=== PATIENT | female | born 1970 | race Caucasian/White ===

== ENCOUNTER → 2016-08-13 | Outpatient (CLI) | payer SELFPAY ==
--- NOTE | 2016-08-13 14:36 | DI ---
Indication: ITS.REASON: PAIN IN LEFT SHOULDER M25.512 PROCEDURE: SHOULDER LEFT 3 VIEWS: Encounter: Initial Comparison: None Findings: There is no acute fracture, dislocation or malalignment identified. Degenerative change in the glenohumeral joint with subchondral cyst formation and osteophytes on the humeral head, advanced for age. Acromioclavicular joint appears normal. Impression: No acute fracture. Advanced glenohumeral degenerative changes for age. .
--- NOTE | 2016-08-13 15:37 | DI ---
Indication: ITS.REASON: R10.31 RLQ ABD PAIN PROCEDURE: PA view of the chest with supine and upright AP views of the abdomen Encounter: Initial Comparison: None FINDINGS: The lungs are clear. There is no abnormal airspace opacity, pleural effusion or pneumothorax identified. The heart size, pulmonary vasculature and mediastinum are within normal limits. There is no free air on the upright view. The bowel gas pattern is nonobstructive and nonspecific. Gas is seen in nondilated small and large bowel to the level of the rectum. Moderate stool is seen throughout the colon. Cholecystectomy clips. Rounded 4 mm calcification projecting over the right L5 transverse process. IMPRESSION: 1. No acute cardiopulmonary abnormality. 2. No evidence of acute obstruction or free air. 3. 4 mm calcification projecting over the right L5 transverse process could represent a phlebolith or possibly a ureteral stone. .
== END ==
LOC: IMA 13:46
PROVIDERS: ATTEND Family Medicine
DX: M19.012 Primary osteoarthritis, left shoulder (principal); R93.8 Abnormal findings on diagnostic imaging of other specified body structures; R10.31 Right lower quadrant pain; M25.512 Pain in left shoulder

== ENCOUNTER 2017-06-05 10:52 | Inpatient (IN) ==
[2017-06-05] MEDS ORDERED: AZITHROMYCIN IV 500 MG in NS 250ml 250 ML IV ONE (11:10)
[2017-06-05] MEDS ORDERED: METHYLPREDNISOLONE SOD SUCC 125mg/2ml INJECTION IVP ONE (11:10)
--- NOTE | 2017-06-05 11:12 | Emergency Department Report ---
Asthma HPI - General Stated Complaint: soa,weak,fever Time Seen by Provider: 06/05/17 11:04 Source: patient, family, RN notes reviewed, old records reviewed Mode of arrival: ambulatory Limitations: no limitations - History of Present Illness HPI Narrative: 46yo woman presents to the ER for evaluation of SOA. Pt developed dyspnea at rest 8 days ago. Six days ago, she presented to the ER in [place] for evaluation (she wanted to come to [place], because her PCM is here, but could not travel on the icy roads). Pt was initially told that she had a virus and was given zofran. Four days ago, she was called and told that she actually had pneumonia; no atbx were rx'ed. Pt has not followed up with her PCM. Has not sought other treatment. Pt has not been taking anything for her sx. Pt does smoke 1+1/2ppd, but has not smoked for the last 8 days 2/2 dyspnea. Pt is here today, because her UOP has dropped and the urine she does produce is dark yellow and beasley. Pt thinks her 'kidneys are shutting down'. complaint: shortness of breath Onset (ago): day(s) (8+) Severity: severe Associated symptoms: dry cough - Related Data Current Asthma Therapy: none Home Medications Medication Instructions Recorded Confirmed Acetaminophen [Tylenol] 500 mg PO Q4HR PRN 06/05/17 06/05/17 Naproxen Sodium [Aleve] 220 mg PO BIDWM 06/05/17 06/05/17 Ondansetron [Zofran Odt] 4 mg PO Q6HR PRN 06/05/17 06/05/17 Allergies Allergy/AdvReac Type Severity Reaction Status Date / Time No Known Allergies Allergy Verified 06/05/17 11:17 Review of Systems All systems: reviewed and negative except as stated Respiratory: Reports: as per HPI, cough, dyspnea. Denies: wheezes, hemoptysis, stridor Genitourinary: Reports: as per HPI, dysuria. Denies: urgency, frequency, hematuria, discharge, abnormal menses, dyspareunia, genital lesions [facility] Patient Stated Medical History Multiple Sclerosis wanting her to have a workup for this Pneumonia Yes Depression Yes - Social History Smoking status: Current every day smoker Physical Exam - Limitations Limitations: no limitations - General General appearance: alert, in distress (Respiratory) - Normal Exams: Head:: Normocephalic without trauma Eyes:: Pupils are PERRLA w/ EOMI, No scleral icterus, irritation, or foreign bodies noted ENMT:: No facial trauma, nasal exudates, pharyngeal erythema, or exudates are noted Neck:: Full range of motion, without adenopathy Lymphatic:: No lymphadenopathy Musculoskeletal:: No tenderness, or deformity noted Integumentary:: No rashes, hives, or bruising noted Neurological:: Patient is alert, and oriented Psychiatric:: Patient exhibits, appropriate attention - Chest Chest inspection: Present: normal inspection, symmetric chest wall rise. Absent : tenderness, rash - Respiratory Respiratory exam: Present: normal lung sounds bilaterally, wheezes (Throughout) , prolonged expiratory phase, crackles (LLL). Absent: respiratory distress, stridor - Cardiovascular Cardiovascular exam: Present: normal rhythm, tachycardia, normal heart sounds. Absent: regular rate - Abdominal Exam Abdominal exam: Present: soft, normal bowel sounds. Absent: distention, tenderness, guarding, rebound, rigidity Course - Consultations Consultation #1: Hospitalist: Time: 14:01 Vital Signs Temperature 98.2 F 06/05/17 10:55 Pulse Rate 98 06/05/17 10:55 Respiratory Rate 24 06/05/17 10:55 Blood Pressure 129/83 06/05/17 10:55 Pulse Oximetry 94 06/05/17 10:55 Temperature 96.5 F L 06/05/17 15:03 Pulse Rate 81 06/05/17 15:09 Respiratory Rate 18 06/05/17 15:03 Blood Pressure 130/69 06/05/17 15:03 Pulse Oximetry 95 06/05/17 15:09 Dyspnea - MDM Narrative Medical decision making narrative: Pt with no evidence of bacterial infx today; her prior PNA was likely viral. Pt somewhat improved following respiratory therapy and IV steroids, but cont to have SaO2 in low 90s on 2L by NC. Pt sits at 94% SaO2 on 2L by NC; bounces between 92-96% on 2L by NC. Pt has no O2 requirement at home; will complete workup, anticipating admission. - Differential Diagnosis Differential diagnosis: Likely: Acute exacerbation, Pneumonia, COPD exacerbation , Pulmonary edema systolic, Pulmonary edema dystolic, Pneumothorax - Medical Records Attestation: I reviewed the patient's medical records. - Lab Data Attestation: I reviewed the patient's lab results. Result diagrams: 06/05/17 11:31 06/05/17 11:31 Lab Results 06/05/17 06/05/17 06/05/17 Range/Units 11:31 11:31 11:31 WBC 11.6 H (4.5-11.0) T/MM3 RBC 5.03 (4.00-5.20) M/MM3 Hgb 15.0 (12-16) GM/DL Hct 43.2 (36-46) % MCV 85.9 (80-100) UM3 MCH 29.8 (26-34) UUG MCHC 34.7 (31-37) GM/DL RDW Std Deviation 38.5 (36.9-50.2) FL Plt Count 229 (130-400) T/MM3 MPV 10.4 (9.4-12.4) UM3 Immature Gran % (Auto) Not performed Neut % (Auto) Not performed Lymph % (Auto) Not performed Screven % (Auto) Not performed Eos % (Auto) Not performed Baso % (Auto) Not performed Neut # (Auto) Not performed Lymph # (Auto) Not performed Scre[place] # (Auto) Not performed Eos # (Auto) Not performed Baso # (Auto) Not performed Abs Immat Gran (auto) Not performed Neutrophils % (Manual) 75.0 H (33-66) % Band Neutrophils % 1.0 (0-6) % Lymphocytes % (Manual) 17.0 L (23-45) % Monocytes % (Manual) 7.0 (0-9.0) % Neutrophils # (Manual) 8.7 H (1.8-7.7) T/MM3 Band Neutrophils # 0.1 T/MM3 Lymphocytes # (Manual) 2.0 (1-4.8) T/MM3 Monocytes # (Manual) 0.8 (0-0.8) T/MM3 RBC Morph Comment Normal VBG pH (7.31-7.41) VBG pCO2 (40-52) MMHG VBG pO2 (40-52) MMHG VBG HCO3 (22-26) MEQ/L VBG Total CO2 MEQ/L VBG O2 Saturation % VBG Base Excess (-2.0-2.0) MMOL/L O2 Delivery Method Turbidity < 20 (0-20) Sodium 144 (134-144) MEQ/L Potassium 3.4 L (3.6-5) MEQ/L Chloride 103 (98-107) MEQ/L Carbon Dioxide 27 (22-30) MEQ/L Anion Gap 14 (5-15) MEQ/L BUN 16.0 (7-17) MG/DL Creatinine 0.7 (0.7-1.2) MG/DL GFR Calculation 90 BUN/Creatinine Ratio 23 (6-26) RATIO Glucose 131 H (65-110) MG/DL Calculated Osmolality 280 (261-280) MOSM/KG Calcium 9.3 (8.4-10.2) MG/DL Icterus Index < 2 (0-7) Troponin I < 0.012 (0-0.12) ng/ml Specimen Hemolysis 21 < 15 (0-25) //18 Range/Units 13:29 WBC (4.5-11.0) T/MM3 RBC (4.00-5.20) M/MM3 Hgb (12-16) GM/DL Hct (36-46) % MCV (80-100) UM3 MCH (26-34) UUG MCHC (31-37) GM/DL RDW Std Deviation (36.9-50.2) FL Plt Count (130-400) T/MM3 MPV (9.4-12.4) UM3 Immature Gran % (Auto) Neut % (Auto) Lymph % (Auto) Screven % (Auto) Eos % (Auto) Baso % (Auto) Neut # (Auto) Lymph # (Auto) Screven # (Auto) Eos # (Auto) Baso # (Auto) Abs Immat Gran (auto) Neutrophils % (Manual) (33-66) % Band Neutrophils % (0-6) % Lymphocytes % (Manual) (23-45) % Monocytes % (Manual) (0-9.0) % Neutrophils # (Manual) (1.8-7.7) T/MM3 Band Neutrophils # T/MM3 Lymphocytes # (Manual) (1-4.8) T/MM3 Monocytes # (Manual) (0-0.8) T/MM3 RBC Morph Comment VBG pH 7.480 H (7.31-7.41) VBG pCO2 42.0 (40-52) MMHG VBG pO2 26.0 L (40-52) MMHG VBG HCO3 31.3 H (22-26) MEQ/L VBG Total CO2 32.6 MEQ/L VBG O2 Saturation 54.0 % VBG Base Excess 7.1 H (-2.0-2.0) MMOL/L O2 Delivery Method Room air Turbidity (0-20) Sodium (134-144) MEQ/L Potassium (3.6-5) MEQ/L Chloride (98-107) MEQ/L Carbon Dioxide (22-30) MEQ/L Anion Gap (5-15) MEQ/L BUN (7-17) MG/DL Creatinine (0.7-1.2) MG/DL GFR Calculation BUN/Creatinine Ratio (6-26) RATIO Glucose (65-110) MG/DL Calculated Osmolality (261-280) MOSM/KG Calcium (8.4-10.2) MG/DL Icterus Index (0-7) Troponin I (0-0.12) ng/ml Specimen Hemolysis (0-25) - Radiology Data Attestation: I reviewed the patient's radiology results. CXR: IMPRESSION: No acute cardiopulmonary disease. - EKG Data EKG #1 EKG attestation: Yes: I reviewed and interpreted this EKG. EKG shows normal: sinus rhythm, axis, intervals, QRS complexes, ST-T waves Rate [ED.COU.EKR]: normal Interpretation: normal EKG Disposition Clinical Impression: Acute Bronchitis With Chronic Obstructive Pulmonary Disease (COPD) Disposition: 02 Acute Care Hosp, Other Condition: Stable Time of Disposition: 14:20 - Seen By: physician
[2017-06-05] MEDS: ALBUTEROL/IPRATROPIUM 2.5mg-0.5mg/3ml NEB AEROSOL SCH ×5 (11:38→20:07)
[2017-06-05] MEDS: SALINE FLUSH 10ml SYRINGE IVF PRN ×2 (11:38→22:01)
[2017-06-05] MEDS ORDERED: NS FLUSH BAG 500ml IV PRN (12:02)
[2017-06-05] MEDS ORDERED: ONDANSETRON 4 MG/2 ML INJECTION IVP ONE (12:06)
--- NOTE | 2017-06-05 12:40 | XRay Report ---
INDICATION: SOA PROCEDURE: CHEST 2-VIEWS UPRIGHT (PA & LAT) Encounter: Initial COMPARISON: August 13, 2016 FINDINGS: The lungs are clear without evidence of focal abnormal airspace opacity. There is no pleural effusion or pneumothorax. The heart size, mediastinal contours and pulmonary vascularity are within normal limits. There is no significant skeletal abnormality. IMPRESSION: No acute cardiopulmonary disease. .
--- NOTE | 2017-06-05 15:26 | History & Physical Report ---
History of Present Illness Date: 06/05/17 Chief complaint: Coughing, Vomiting, COPD exacerbation HPI: She is a 46 showed female who presents to the emergency room today for acute evaluation of shortness of breath for the past 7 days. She reports that she was evaluated last week at [place] emergency room. She had laboratory and x-rays done at that time. She was told she had a virus and was sent home on Zofran. She reports that 4 days ago. She was called and told that she had pneumonia, however, no treatment was changed. Since that time she has continued to feel worse. She has a significant amount of vomiting every day and is unable to keep down fluids. She complains of body aches along with fever of 102 last evening. Today she presents to [facility] emergency room so she can be closer to her primary care provider, [facility]. Auditory studies did reveal mild leukocytosis with a white count of 11.6, 75% neutrophils, 1% band. Sodium is 144, potassium 3.4, BUN 16, creatinine 0.7. Troponin negative. He is afebrile. While in the emergency room. Pulse in the 90s , respiration rate 20, blood pressure is normal. Chest x-ray was performed, however, showed no acute cardiopulmonary disease. She did receive IV fluids as well as DuoNeb breathing treatment, a azithromycin 500 milligrams and Solu- Medrol 125 milligrams. She was also given a one-time dose of Zofran and oral potassium supplementation. She does have an underlying history of 1 pack a day smoker 20 years. Even her worsening symptoms despite outpatient treatment, accompanied with leukocytosis and vomiting. The hospitalist services were contacted and accepted patient for Inpatient admission for further evaluation and treatment. Patient is seen on admission to the medical unit. She is alert, oriented and appears to be in mild to moderate distress. Her hoarse voice is hoarse during conversation and at times she is unable to speak. She complains of generalized body aches especially in her back. She reports fever of 102 last evening. Presents of cough, vomiting. He reports having decreased urinary output as she feels that she is dehydrated. Review of Systems All systems PM: 10-point ROS was reviewed, no additional remarkable complaints except - Constitutional Constitutional: Present: anorexia, fatigue, fever(s), weakness Comments: Body aches - EENMT Mouth/Throat: Present: hoarseness - Respiratory Respiratory: Present: cough, dyspnea - Gastrointestinal Gastrointestinal: Present: nausea, vomiting - Genitourinary Genitourinary: Present: dysuria (decreased urinary output) - Musculoskeletal Musculoskeletal: Present: as per HPI, myalgias Past Medical History Depression, anxiety Currently undergoing workup for MS Chronic tobacco dependence Surgical History: Hysterectomy. Cholecystectomy. Appendectomy Family History Updates: Father at age 63 from metastatic cancer. Mother at age 63 from an GA - Social History Smoking status: Current every day smoker Packs per day: 1 Packs-years: 20 Substance use type: does not use Alcohol intake frequency: does not drink Housing: house Household members: significant other Current residence: Apartment/Private Home Social history: Patient resides in [place]. Primary care provider-Risa Colby at [facility] Medications Home Medications Medication Instructions Recorded Confirmed Type Acetaminophen [Tylenol] 500 mg PO Q4HR PRN 06/05/17 06/05/17 History Naproxen Sodium [Aleve] 220 mg PO BIDWM 06/05/17 06/05/17 History Ondansetron [Zofran Odt] 4 mg PO Q6HR PRN 06/05/17 06/05/17 History Allergies Allergy/AdvReac Type Severity Reaction Status Date / Time No Known Allergies Allergy Verified 06/05/17 11:17 Exam Vital Signs: Temperature 96.5 F L 06/05/17 15:03 Pulse Rate 81 06/05/17 15:09 Respiratory Rate 18 06/05/17 15:03 Blood Pressure 130/69 06/05/17 15:03 Pulse Oximetry 95 06/05/17 15:09 Height/Weight/BMI: Height 1.69 m Weight 103.8 kg Body Mass Index 36.3 - Constitutional Present: mild distress, well nourished, well developed - Routine HEENT Exam Eye: Present: EOMI ENT: Present: mucous membranes dry, dentition normal - Routine Neck Exam Present: supple - Routine Respiratory Exam Present: crackles (bilaterally) - Routine Cardiovascular Exam Present: RRR, S1, S2. Absent: murmur - Routine Abdominal Exam Present: soft, normoactive bowel sounds, non distended. Absent: tenderness - Routine Extremities Exam Present: no edema, pulses intact - Routine Back/Spine/Pelvis Exam Back/Spine: Present: full ROM - Routine Skin Exam Present: intact, dry, warm - Routine Neurological Exam Present: alert, oriented X3, CN II-XII intact, moving all extremities - Routine Psychiatric Exam Present: normal affect, cooperative Results - Labs CBC & Chem 7: 06/05/17 11:31 06/05/17 11:31 Assessment and Plan (1) Acute Bronchitis With Chronic Obstructive Pulmonary Disease (COPD) Current visit: Yes Status: Acute (2) Failure of outpatient treatment Current visit: Yes Status: Acute Assessment and Plan: Impression Acute Bronchitis with COPD exacerbation Failed outpatient treatment Hoarseness Leukocytosis-Present admission Hypokalemia-present on admission Anxiety, depression Chronic tobacco dependence Plan Admit as inpatinet status under the care of Dr Tobin Patient was started on Azithromycin IV while in the ER. Will continue daily for antimicrobial coverage. Blood cultures pending. Obtain Viral respiratory panel on admission Digital DuoNeb 4 times a day and Pulmicort twice a day Solu-Medrol IV every 6 hours to assist with pulmonary inflammation Even recent vomiting and potential dehydration. Continue with normal saline with 20 KCl to run at 100 ML per hour for gentle hydration Zofran available as needed for nausea Tylenol and Toradol available as needed for pain and body aches Monitor oxygen saturations, encourage use of a cappella as well as tobacco cessation SCDs to bilateral lower extremity for DVT prophylaxis. Recheck CBC and BMP tomorrow morning to follow blood counts, renal function and electrolytes Will discuss further orders and plan of care with attending, Dr Tobin At time of discharge medical care will return to patient's primary care provider , Risa Ordoñez APRN at [facility] DVT Prophylaxis: SCD's Resuscitation Status: Full Code - Time spent with patient Time with patient PN: 50 minutes - Physician Narrative Physician: Rowdy Tobin MD Narrative: Date: 06/05/17 Time: 1442 Have independently interviewed and examined pt. Chart reviewed. Case discussed with ED physician and my [employer]. Care plan developed with my supervision; agree with above. Presents to ED secondary to 1 week history of difficulty breathing/congestion. Was seen in [place] ED-Dx with viral syndrome and given Zofran to help her nausea. Using OTC respiratory medications without help. Persistent nausea despite Zofran. Oral drive very decreased-taking small amount of water in at a time (anything more causes increased nausea/vomiting). No diarrhea-stool slow, decreased flatus. Decreased urine output. More weak in general. Dizzy with positional change but no falls or trauma. Evaluated in ED. RR elevated and still elevated despite Neb treatments. Requiring O2 to maintain saturations in ED. WBC with elevation. CXR not showing infiltrate (possible due to pt significant dehydration). Due to persistent tachypnea despite nebulizer as well as significant N/V which would make outpatient treatment very difficult, will place patient in inpatient admission for further evaluation and treatment. Lungs: decrease breath sounds, course and congested. Shallow, rapid respiration. CV: Regular AB: soft nt, BS decreased Gen: looks ill, eyes sunken. Plan: Will place patient in inpatient admission for treatment of suspected pneumonia (viral vs CAP). Check resp panel-symptoms suspicious for influenza. IVF for hydration. Azithromycin initiated in ED, will continue. Recheck CXR tomorrow as potentially pneumonia could become viable-would start Rocephin in infiltrate seen. Solu-Medrol to decrease pulmonary inflammation. Neb treatment and acapella. Mucinex DM BID. Encouraged tobacco cessation - RT consult placed. SCD for DVT prevention. Monitor lab. Care to return to PCP at time of discharge from [facility] [facility]. Hospital Course Summary Disclaimer: The visit summary below is not to be considered part of the above Progress Note. Hospital Course: Impression Acute Bronchitis with COPD exacerbation Failed outpatient treatment Hoarseness Leukocytosis-Present admission Hypokalemia-present on admission Anxiety, depression Chronic tobacco dependence Plan Admit as inpatinet status under the care of Dr Tobin Patient was started on Azithromycin IV while in the ER. Will continue daily for antimicrobial coverage. Blood cultures pending. Obtain Viral respiratory panel on admission Digital DuoNeb 4 times a day and Pulmicort twice a day Solu-Medrol IV every 6 hours to assist with pulmonary inflammation Even recent vomiting and potential dehydration. Continue with normal saline with 20 KCl to run at 100 ML per hour for gentle hydration Zofran available as needed for nausea Tylenol and Toradol available as needed for pain and body aches Monitor oxygen saturations, encourage use of a cappella as well as tobacco cessation SCDs to bilateral lower extremity for DVT prophylaxis. Recheck CBC and BMP tomorrow morning to follow blood counts, renal function and electrolytes Will discuss further orders and plan of care with attending, Dr Tobin At time of discharge medical care will return to patient's primary care provider , Risa Ordoñez APRN [facility]
[2017-06-05] MEDS ORDERED: ALBUTEROL/IPRATROPIUM 2.5mg-0.5mg/3ml NEB AEROSOL PRN (15:50)
[2017-06-05] MEDS ORDERED: KETOROLAC 30 MG/ML INJECTION IVP PRN (15:50)
[2017-06-05] MEDS: METHYLPREDNISOLONE SOD SUCC 125mg/2ml INJECTION IVP SCH ×2 (16:27→22:00)
[2017-06-05] MEDS: 1/2 NS with KCL 20mEq 1,000 ML IV SCH (16:31)
[2017-06-05] MEDS: ACETAMINOPHEN 500 MG TABLET PO PRN ×2 (18:04→22:09)
[2017-06-05] MEDS: BUDESONIDE INH.SOLN 0.5mg/2ml NEB AEROSOL SCH ×2 (18:06→20:07)
[2017-06-06] MEDS: 1/2 NS with KCL 20mEq 1,000 ML IV SCH ×3 (02:31→20:13)
[2017-06-06] MEDS: METHYLPREDNISOLONE SOD SUCC 125mg/2ml INJECTION IVP SCH ×3 (03:15→16:55)
[2017-06-06] MEDS: ACETAMINOPHEN 500 MG TABLET PO PRN ×2 (04:55→08:56)
[2017-06-06] MEDS: SALINE FLUSH 10ml SYRINGE IVF PRN ×2 (05:52→13:39)
[2017-06-06] MEDS: ALBUTEROL/IPRATROPIUM 2.5mg-0.5mg/3ml NEB AEROSOL SCH ×4 (07:53→20:37)
[2017-06-06] MEDS: BUDESONIDE INH.SOLN 0.5mg/2ml NEB AEROSOL SCH ×2 (07:54→20:38)
--- NOTE | 2017-06-06 08:31 | XRay Report ---
INDICATION: Dyspnea/Hypoxia - ? Infiltrate PROCEDURE: CHEST 2-VIEWS UPRIGHT (PA & LAT) Encounter: Initial COMPARISON: June 05, 2017 Findings: The lungs are stable in appearance without new focal airspace consolidation. There is no pleural effusion or pneumothorax. The heart size, pulmonary vascularity and mediastinal contours are unchanged. IMPRESSION: Stable appearance of the chest without acute cardiopulmonary disease. .
[2017-06-06] MEDS: ONDANSETRON 4 MG/2 ML INJECTION IVP PRN (08:56)
[2017-06-06] MEDS: AZITHROMYCIN IV 500 MG in NS 250ml 250 ML IV SCH (12:56)
[2017-06-06] MEDS ORDERED: PROCHLORPERAZINE 10 MG/2 ML INJECTION IVP PRN (13:15)
[2017-06-06] MEDS ORDERED: MORPHINE SULFATE 4mg INJECTION IVP ONE (13:17)
--- NOTE | 2017-06-06 14:34 | Progress Note ---
- Date 06/06/17 Subjective: While resp status is improving, she c/o of a severe migraine. It's typical to her weekly migraines -- global pounding, light sensitivity, nausea/vomiting ( she was vomiting when I walked in), blurred vision, neck pain. She states that she's had intermittent blurred vision and right arm/leg weakness for the last year -- her weakness has even caused some falls. Her mother had MS and her PCP is worried she might have it too. Typically for her migraines she takes Tylenol 1g + Aleve 500 mg then tries to sleep it off. Several yrs ago she used to take Imitrex or a similar triptan. This morning she had Tylenol and Toradol, but they haven't provided any relief. She only slept 2.5 hours last night. She's hungry but can't eat/drink much b/c nausea. She did state however that she voided 3-4 times today, compared to only once yesterday. Objective Vital signs: Temperature 95.0 F L 06/06/17 08:24 Pulse Rate 86 06/06/17 08:24 Respiratory Rate 18 06/06/17 11:31 Blood Pressure 134/76 06/06/17 08:24 Pulse Oximetry 98 06/06/17 11:31 Height/Weight/BMI: Height 1.69 m Weight 104.5 kg Body Mass Index 36.3 - Constitutional Present: moderate distress - Routine HEENT Exam Head: Present: normocephalic Eye: Present: PERRL. Absent: conjunctival icterus, scleral injection - Routine Respiratory Exam Present: decreased breath sounds, wheezes (occasional) Comments: coarse breath sounds - Routine Cardiovascular Exam Present: RRR, S1, S2 - Routine Abdominal Exam Present: soft, normoactive bowel sounds - Routine Extremities Exam Present: no edema - Routine Musculoskeletal Exam Musculoskeletal: Present: moving extremities well - Routine Skin Exam Present: intact, dry, warm - Routine Neurological Exam Present: alert, oriented X3 no focal deficits noted. Pt was in severe pain and thorough CN exam was limited. - Routine Psychiatric Exam Present: cooperative Results - Labs CBC & Chem 7: 06/06/17 04:16 06/06/17 04:16 Assessment and Plan (1) Acute Bronchitis With Chronic Obstructive Pulmonary Disease (COPD) Current visit: Yes Status: Acute (2) Failure of outpatient treatment Current visit: Yes Status: Acute Assessment and Plan: Impression Acute Bronchitis with COPD exacerbation Migraine - intractable Nausea/vomiting, dehydration Leukocytosis-Present admission - resolved Hypokalemia-present on admission - improving Anxiety, depression Chronic tobacco dependence Obesity with BMI 36.6 Plan Intractable migraine -will give Compazine plus a one-time dose of Morphine 4 mg. Start oxygen to see if that helps with migraine. -will have Imitrex available if she starts to have another migraine. -Increase Tylenol to 1 gm. Cont with toradol. -MRI brain d/t sx worrisome for MS and positive fam hx. COPD/bronchitis -improving. Decrease Solu-Medrol to 62.5 mg TID. -viral panel neg. -Continue azithr (day #2) and breathing treatments. N/V/dehydration -cont with IVF. -advance diet to full liquid per pt request. D/w Dr. Tobin. High risk med in use today (Morphine) DVT Prophylaxis: SCD's GI Prophylaxis: Protonix Resuscitation Status: Full Code - Time spent with patient Time with patient PN: 25 minutes - Physician Narrative Physician: Rowdy Tobin MD Narrative: Date: 06/06/17 Time: 0 Have independently interviewed and examined pt. Chart reviewed. Case discussed with CM and my APNR. Care plan developed with my supervision; agree with above. Rough morning-severe headache. With mediations initiated, headache decreasing. Oral drive decreased, not feeling hungry. Still with nausea. Breathing still very short and congested. Cough at times. Urinating well. Strength decreased. CV: regular Lungs: Decrease bilaterally, coarse and tight. Cough with expiration. Shallow breathing, little air movement. AB: soft nt/nd Plan: Continue IVF for hydration due to decreased oral drive. Decrease Solu- Medrol. Migraine treatments initiated by my MULTI OPERATION MACHINE OPERATOR-helpful. Will check MRI of brain secondary to Migraine and to help exclude MS (in process of evaluation in outpatient setting, not had MRI yet). Continue with supportive care. Hospital Course Summary Disclaimer: The visit summary below is not to be considered part of the above Progress Note. Hospital Course: 06/05 Admit as inpatient status under the care of Dr Tobin Patient was started on Azithromycin IV while in the ER. Will continue daily for antimicrobial coverage. Blood cultures pending. Digital DuoNeb 4 times a day and Pulmicort twice a day; Solu-Medrol IV every 6 hours Even recent vomiting and potential dehydration. Continue with normal saline with 20 KCl to run at 100 ML per hour for gentle hydration Zofran available as needed for nausea; Tylenol and Toradol available as needed for pain and body aches Monitor oxygen saturations, encourage use of acappella as well as tobacco cessation. SCDs for DVT prophylaxis. 06/06 Intractable migraine -will give Compazine plus a one-time dose of Morphine 4 mg. Start oxygen to see if that helps with migraine. -will have Imitrex available if she starts to have another migraine. -Increase Tylenol to 1 gm. Cont with toradol. -MRI brain d/t sx worrisome for MS and positive fam hx. COPD/bronchitis -improving. Decrease Solu-Medrol to 62.5 mg TID. -viral panel neg. -Continue azithr (day #2) and breathing treatments. N/V/dehydration -cont with IVF. -advance diet to full liquid per pt request.
[2017-06-06] MEDS ORDERED: SUMATRIPTAN 25 MG TABLET PO PRN (14:35)
[2017-06-06] MEDS ORDERED: ACETAMINOPHEN 500 MG TABLET PO PRN (14:46)
[2017-06-06 15:07] VITALS: BMI 36.6
[2017-06-06] MEDS ORDERED: FALL RISK - PHARMACY CONSULT XX ONE (19:38)
[2017-06-06] MEDS ORDERED: MELATONIN 5 MG TABLET PO PRN (21:00)
[2017-06-06] MEDS: SENNA + DOCUSATE TABLET PO SCH (21:22)
[2017-06-07] MEDS: METHYLPREDNISOLONE SOD SUCC 125mg/2ml INJECTION IVP SCH ×2 (00:26→08:45)
[2017-06-07] MEDS: SALINE FLUSH 10ml SYRINGE IVF PRN ×2 (00:27→05:41)
[2017-06-07] MEDS: 1/2 NS with KCL 20mEq 1,000 ML IV SCH ×2 (04:45→14:48)
[2017-06-07] MEDS: PANTOPRAZOLE 20 MG TABLET PO SCH (05:37)
[2017-06-07] MEDS: ONDANSETRON 4 MG/2 ML INJECTION IVP PRN (05:41)
[2017-06-07] MEDS: BUDESONIDE INH.SOLN 0.5mg/2ml NEB AEROSOL SCH ×2 (07:11→19:29)
[2017-06-07] MEDS: ALBUTEROL/IPRATROPIUM 2.5mg-0.5mg/3ml NEB AEROSOL SCH ×4 (07:11→19:29)
[2017-06-07] MEDS: SENNA + DOCUSATE TABLET PO SCH ×2 (08:46→21:02)
--- NOTE | 2017-06-07 12:23 | Progress Note ---
- Date 06/07/17 Subjective: Pt is feeling much better today. Her migraine relief wasn't immediate yesterday , but significantly better after a few hours. She slept for 6 hours last night which also helps her situation. Currently, she isn't c/o any pain except for her normal "aches and pains". She feels like her breathing is getting better. She feels like her balance is "off" and her right ear is hurting. She also reports that everything tastes funny but her nausea has resolved and her stomach is growling - she's ready to eat some normal food. She's disappointed b/ c her grandfather's is today but she's trying to look on the positive side -- for ex., now she doesn't have to be outside in the cold. Objective Vital signs: Temperature 97.5 F 06/07/17 08:00 Pulse Rate 84 06/07/17 08:00 Respiratory Rate 16 06/07/17 08:00 Blood Pressure 128/67 06/07/17 08:00 Pulse Oximetry 94 06/07/17 08:00 Height/Weight/BMI: Height 1.69 m Weight 105.6 kg Body Mass Index 36.6 - Constitutional Present: no acute distress, well nourished, well developed - Routine HEENT Exam Head: Present: normocephalic Eye: Present: PERRL. Absent: conjunctival icterus, scleral injection ENT: Present: mucous membranes moist, oropharynx clear. Absent: TM's clear bilaterally (B/L effusions; right TM much duller with decreased light reflex) - Routine Respiratory Exam Present: decreased breath sounds Comments: coarse breath sounds with rare and mild exp wheeze - Routine Cardiovascular Exam Present: RRR, S1, S2 - Routine Abdominal Exam Present: soft, normoactive bowel sounds, non distended, non tender - Routine Extremities Exam Present: edema (trace b/l shins), pulses intact - Routine Musculoskeletal Exam Musculoskeletal: Present: moving extremities well - Routine Skin Exam Present: intact, dry, warm - Routine Neurological Exam Present: alert, oriented X3, CN II-XII intact, moving all extremities, normal speech - Routine Psychiatric Exam Present: normal affect, normal thought process, cooperative Results - Labs CBC & Chem 7: 06/07/17 04:03 06/07/17 04:03 Assessment and Plan (1) Acute Bronchitis With Chronic Obstructive Pulmonary Disease (COPD) Current visit: Yes Status: Acute (2) Failure of outpatient treatment Current visit: Yes Status: Acute Assessment and Plan: Impression Acute Bronchitis with COPD exacerbation B/L TM effusions with Rt AOM Migraine - intractable - resolved Nausea/vomiting, dehydration - resolved Leukocytosis-Present admission - resolved Hypokalemia-present on admission - improving Anxiety, depression Chronic tobacco dependence Obesity with BMI 36.6 Plan Intractable migraine - resolved. MRI report pending. Imitrex PRN. COPD/bronchitis - improving. Decrease Solu-Medrol to BID and start Prednisone 40 mg in am. Continue azithro, day #3. Will also add Keflex to cover for additional respiratory pathogens and right acute otitis. Start Flonase and Mucinex DM for B/L TM effusions. Increase activity level. N/V - improved. DC IVF and push oral fluids, Na still on high side. Advance diet to regular. DVT Prophylaxis: SCD's Resuscitation Status: Full Code - Physician Narrative Physician: Aggie Rose MD Narrative: Date: 06/07/17 Time: 1650 Rose: The patient was seen and examined by me this morning. She states her headache is much better. She has been ambulating in the room. Her breathing is improved. She is a bit emotional today as her grandfathers is today and she is unable to attend. She denies any chest pain or pressure. She's hungry and would like something real to eat. She denies any nausea or vomiting. No BM since admission. She denies any abdominal pain and states she is passing gas. Her labs all look better today and her vital signs are stable. In general, she is alert and oriented and in no acute distress. Her head is normocephalic atraumatic. Eyes PERRL, EOMs intact, sclera, lids and conjunctiva are within normal limits. She has moist mucous membranes. Oropharynx is clear. Her neck is supple without JVD. Carotids are 2+ and upstroke without bruits. Her lungs are diminished with coarse breath sounds at a soft expiratory wheeze. Her heart is regular without murmur, rub or gallop. Her abdomen is obese, soft, nontender and nondistended. There are positive bowel sounds. She has a trace of lower extremity edema. She has good strength and range of motion. She has good distal pedal pulses. Neurological exam shows no focal deficit. I have discussed the patient at length with Marcela the SCHOOL TRANSPORTATION SUPERVISOR. We have a developed a plan. We are going to change to oral prednisone tomorrow. Will start Flonase and Mucinex for her ears. Will stop the IV fluids and push oral intake. We will advance her diet. Her migraine has resolved should it occur we can try Imitrex as needed. We can see how she does off oxygen. I suspect she'll do fine but we should probably check ambulatory oxygenation as well. I agree with Marcela's assessment and plan. Hospital Course Summary Disclaimer: The visit summary below is not to be considered part of the above Progress Note. Hospital Course: 06/05 Admit as inpatient status under the care of Dr Tobin Patient was started on Azithromycin IV while in the ER. Will continue daily for antimicrobial coverage. Blood cultures pending. Digital DuoNeb 4 times a day and Pulmicort twice a day; Solu-Medrol IV every 6 hours Even recent vomiting and potential dehydration. Continue with normal saline with 20 KCl to run at 100 ML per hour for gentle hydration Zofran available as needed for nausea; Tylenol and Toradol available as needed for pain and body aches Monitor oxygen saturations, encourage use of acappella as well as tobacco cessation. SCDs for DVT prophylaxis. 06/06 Intractable migraine -will give Compazine plus a one-time dose of Morphine 4 mg. Start oxygen to see if that helps with migraine. -will have Imitrex available if she starts to have another migraine. -Increase Tylenol to 1 gm. Cont with toradol. -MRI brain d/t sx worrisome for MS and positive fam hx. COPD/bronchitis -improving. Decrease Solu-Medrol to 62.5 mg TID. -viral panel neg. -Continue azithr (day #2) and breathing treatments. N/V/dehydration -cont with IVF. -advance diet to full liquid per pt request. 06/07 Intractable migraine - resolved. MRI report pending. Imitrex PRN. COPD/bronchitis - improving. Decrease Solu-Medrol to BID and start Prednisone 40 mg in am. Continue azithro, day #3. Will also add Keflex to cover for additional respiratory pathogens and right acute otitis. Start Flonase and Mucinex DM for B/L TM effusions. Increase activity level. N/V - improved. DC IVF and push oral fluids, Na still on high side. Advance diet to regular.
[2017-06-07] MEDS: GUAIFENESIN/D-METHORPHAN 600mg/30mg TABLET PO SCH ×2 (13:07→21:02)
[2017-06-07] MEDS: AZITHROMYCIN IV 500 MG in NS 250ml 250 ML IV SCH (13:07)
[2017-06-07] MEDS: FLUTICASONE NASAL SPRAY 50mcg EA NOSTRIL SCH (13:07)
[2017-06-07] MEDS ORDERED: METHYLPREDNISOLONE SOD SUCC 125mg/2ml INJECTION IVP SCH (21:00)
[2017-06-08] MEDS: PANTOPRAZOLE 20 MG TABLET PO SCH (05:52)
[2017-06-08 07:36] VITALS: BP 138/66; TEMP 96.1
[2017-06-08] MEDS: ALBUTEROL/IPRATROPIUM 2.5mg-0.5mg/3ml NEB AEROSOL SCH ×2 (07:46→11:56)
[2017-06-08] MEDS: BUDESONIDE INH.SOLN 0.5mg/2ml NEB AEROSOL SCH (07:46)
[2017-06-08] MEDS ORDERED: PredniSONE 20 MG TABLET PO SCH (08:00)
[2017-06-08] MEDS: GUAIFENESIN/D-METHORPHAN 600mg/30mg TABLET PO SCH (09:16)
[2017-06-08] MEDS: FLUTICASONE NASAL SPRAY 50mcg EA NOSTRIL SCH (09:16)
[2017-06-08] MEDS: SENNA + DOCUSATE TABLET PO SCH (09:17)
[2017-06-08 10:07] VITALS: PULSE 60
--- NOTE | 2017-06-08 10:50 | Magnetic Resonance Report ---
Indication: poss MS, right side weakness, blurred vision PROCEDURE: MR head/brain wo con: Encounter: Initial Comparisons: None. Technique: Multiplanar, multisequence, MR imaging of the head without contrast was acquired. FINDINGS: The ventricles are of normal size, shape, and contour for the patient's age. There are a few T2/FLAIR hyperintense white matter lesions with a periventricular distribution. A couple of these show slightly increased signal on the diffusion-weighted sequences. Postcontrast imaging was not performed. The largest lesion in the right posterior frontal lobe on image #15 measures 9 x 6 mm in size. The brain stem, cerebellum, and cerebral hemispheres have a normal morphologic appearance as well as MR signal intensity on all pulse sequences. There are no areas of restricted diffusion on diffusion weighted imaging to suggest an acute infarct. There is no evidence of an intracranial mass lesion, intracranial hemorrhage, or hydrocephalus. The visualized portions of the orbits, calvarium, and skull base demonstrate no significant abnormality. Moderate sinus mucosal thickening in the sphenoid sinuses and maxillary. IMPRESSION: Periventricular white matter lesions suggestive of multiple sclerosis. Recommend clinical and laboratory correlation. .
--- NOTE | 2017-06-08 11:36 | Discharge Summary ---
Discharge Information Date of admission: 06/05/17 14:41 Anticipated date of discharge: 06/08/17 Attending Physician: Aggie Rose MD Primary care physician: Risa Henriquez APRN - Discharge Diagnosis (1) Acute Bronchitis With Chronic Obstructive Pulmonary Disease (COPD) Status: Acute (2) Failure of outpatient treatment Status: Acute Acute bronchitis with COPD exacerbation nausea and vomiting and dehydration intractable migraines MRI evidence suggesting multiple sclerosis - Laboratory Labs: 06/07/17 04:03 06/08/17 04:17 - Radiology Radiology: MRI brain 06/06/17 IMPRESSION: Periventricular white matter lesions suggestive of multiple sclerosis. Recommend clinical and laboratory correlation. History of Present Illness HPI: She is a 46 showed female who presents to the emergency room on 06/05/17 for acute evaluation of shortness of breath for the past 7 days. She reports that she was evaluated last week at [place] emergency room. She had laboratory and x-rays done at that time. She was told she had a virus and was sent home on Zofran. She reports that 4 days ago. She was called and told that she had pneumonia, however, no treatment was changed. Since that time she has continued to feel worse. She has a significant amount of vomiting every day and is unable to keep down fluids. She complains of body aches along with fever of 102 last evening. On the day of admssion, she presented to [facility] emergency room so she can be closer to her primary care provider, [facility]NE [facility]. Laboratory studies did reveal mild leukocytosis with a white count of 11.6, 75% neutrophils, 1% band. Sodium is 144, potassium 3.4, BUN 16, creatinine 0.7. Troponin negative. She is afebrile. While in the emergency room. Pulse in the 90s, respiration rate 20, blood pressure is normal. Chest x-ray was performed, however, showed no acute cardiopulmonary disease. She did receive IV fluids as well as DuoNeb breathing treatment, a azithromycin 500 milligrams and Solu-Medrol 125 milligrams. She was also given a one-time dose of Zofran and oral potassium supplementation. She does have an underlying history of 1 pack a day smoker 20 years. Even her worsening symptoms despite outpatient treatment, accompanied with leukocytosis and vomiting. The hospitalist services were contacted and accepted patient for Inpatient admission for further evaluation and treatment. Patient is seen on admission to the medical unit. She is alert, oriented and appears to be in mild to moderate distress. Her hoarse voice is hoarse during conversation and at times she is unable to speak. She complains of generalized body aches especially in her back. She reports fever of 102 last evening. Presents of cough, vomiting. He reports having decreased urinary output as she feels that she is dehydrated. Objective Vital signs: Temperature 96.1 F L 06/08/17 07:35 Pulse Rate 60 06/08/17 08:00 Respiratory Rate 12 06/08/17 07:46 Blood Pressure 138/66 06/08/17 07:35 Pulse Oximetry 96 06/08/17 07:46 Height/Weight/BMI: Height 1.69 m Weight 105 kg Body Mass Index 36.6 Comments: Gen: alert and oriented. NAD Skin: warm and dry HEENT: NC/AT PERRL, EOMI, Sclera, lids and conjunctiva wnl. MMM. OP clear. Neck: No JVD, Carotids 2+ without bruits Lungs: diminished, soft exp wheezes CV: regular. No murmur, rub or gallop Abd: soft. +BS. NT/ND MS: No edema. Good strength and ROM Neuro: No focal deficits Hospital Course This is a general summary of the patient's hospital course. For more details refer to the complete medical record. Hospital course: 06/05 Admit as inpatient status under the care of Dr Tobin Patient was started on Azithromycin IV while in the ER. Will continue daily for antimicrobial coverage. Blood cultures pending. Digital DuoNeb 4 times a day and Pulmicort twice a day; Solu-Medrol IV every 6 hours Even recent vomiting and potential dehydration. Continue with normal saline with 20 KCl to run at 100 ML per hour for gentle hydration Zofran available as needed for nausea; Tylenol and Toradol available as needed for pain and body aches Monitor oxygen saturations, encourage use of acappella as well as tobacco cessation. SCDs for DVT prophylaxis. 06/06 Intractable migraine -will give Compazine plus a one-time dose of Morphine 4 mg. Start oxygen to see if that helps with migraine. -will have Imitrex available if she starts to have another migraine. -Increase Tylenol to 1 gm. Cont with toradol. -MRI brain d/t sx worrisome for MS and positive fam hx. COPD/bronchitis -improving. Decrease Solu-Medrol to 62.5 mg TID. -viral panel neg. -Continue azithr (day #2) and breathing treatments. N/V/dehydration -cont with IVF. -advance diet to full liquid per pt request. 06/07 Intractable migraine - resolved. MRI report pending. Imitrex PRN. COPD/bronchitis - improving. Decrease Solu-Medrol to BID and start Prednisone 40 mg in am. Continue azithro, day #3. Will also add Keflex to cover for additional respiratory pathogens and right acute otitis. Start Flonase and Mucinex DM for B/L TM effusions. Increase activity level. N/V - improved. DC IVF and push oral fluids, Na still on high side. Advance diet to regular. 06/08 This morning the patient was doing quite well. She reports being tired but she' s not sleeping well in this bed. She is off oxygen and denies being short of breath or having dyspnea on exertion. She has been up and around in the room and some in the halls. She denies any nausea or vomiting. She's tolerating regular diet. She feels ready to go home today. He has not had any further migraines. She denies lightheadedness or dizziness. She denies chest discomfort or palpitations. Time spent with patient: 25 - 35 minutes Resuscitation Status: Full Code Discharge Plan - Discharge Disposition Disposition: Discharged Home, Self-Care Reason For Visit (Visit label in EMR): Shortness of air, cough - Discharge Medications *Discharge Medications: New Azithromycin [Zithromax] 1 tab PO DAILY #3 tab Budesonide Flexhaler [Pulmicort 90 Mcg Flexhaler] 90 mcg IH BID #1 inhaler CephALEXin [Keflex 500 mg] 500 mg PO Q6HR #7 cap Fluticasone Nasal [place] [Flonase] 2 spray EA NOSTRIL DAILY #1 bottle Pantoprazole Sodium [Protonix] 20 mg PO ACB #30 tablet. PredniSONE [Deltasone 20 mg] 40 mg PO WB #23 tab Senna + Docusate [Senna Plus Tablet] 1 tab PO BID tablet SUMAtriptan TAB [Imitrex] 50 mg PO PRN PRN #10 tab PRN Reason: Migraine Headache Albuterol HFA Inhaler [Ventolin Hfa 90 mcg/actuation] 2 puff ORAL INH Q4H PRN #1 inhaler PRN Reason: Shortness Of Air/Wheezing Guaifenesin/Dm [Mucinex Dm] 1 tab PO BID tablet Continue Acetaminophen [Tylenol] 500 mg PO Q4HR PRN PRN Reason: Pain /Fever Ondansetron [Zofran Odt] 4 mg PO Q6HR PRN PRN Reason: Nausea &/Or Vomiting Naproxen Sodium [Aleve] 220 mg PO BIDWM - Discharge Packet/Instructions *Diet: Regular *Activity: as tolerated *Pain Management/Treatment: N/A *Wound Care: N/A *Expected Signs/Symptoms: Report is worsening breathing *Notify Physician if: Worsening breathing *During Business Hours Contact: PCP *After Business Hours Contact: ED *Pending Lab/Results: Follow up w/your PCP (In one week) - Referrals/Follow Up *Referrals/Follow Up: Risa Henriquez APRN [Family Provider] - - Patient Handouts - Dismissal Complete Discharge Instructions are:: Complete Physician Narrative - Narrative Attestation Narrative: Date: 06/08/17 Time: 8830
[2017-06-08 12:01] VITALS: RESP 18
[2017-06-08 12:02] VITALS: O2SAT 95
[2017-06-08] MEDS: AZITHROMYCIN IV 500 MG in NS 250ml 250 ML IV SCH (13:43)
== END 2017-06-08 12:55 | disposition home or self-care (01) | DRG 202 ==
LOC: ED 10:52 → MED 14:41 → SUATTDRO 14:41 → MED 15:00
PROVIDERS: ADMIT Hospitalist; ATTEND Internal Medicine Cardiovascular Disease